=== PATIENT | male | born 1950 | race Caucasian/White ===

== ENCOUNTER → 2017-09-13 | Outpatient (CLI) | payer MEDICARE ==
[~2017-09-13] MED LIST: AMLO2.5T PO; ASPI-496 PO; ATOR20TA9 PO; CHOL500015 PO; CYAN25009 PO; HYDR25TA6 PO; MELO7.5T5 PO; OMEG-69 PO; ONDA4TAB10 PO; OXYC5CAP2 PO; POTA10TA12 PO; POTA99TA14 PO; ROSU10TA PO; S-AD400T2 PO; SULF500T36 PO; TRAM50TA2 PO; UBID1CAP43 PO; VITA400C14 PO
[2017-09-13 09:33] LABS: HEMATOCRIT 51.4 % (39.2-51.8); HEMOGLOBIN 17.3 g/dL (13.7-18.0); WHITE BLOOD COUNT 4.1 x10^3/uL (3.4-10)
[2017-09-13 09:43] LABS: ASPARTATE AMINO TRANSFERASE 21 U/L (15-37); BLOOD UREA NITROGEN 19 mg/dL (7-18)
== END | disposition home or self-care (01) ==
LOC: STAR 08:21
PROVIDERS: ATTEND Orthopaedic Surgery
DX: Z01.818 Encounter for other preprocedural examination (principal); M25.562 Pain in left knee; T84.195A Other mechanical complication of internal fixation device of left femur, initial encounter; R79.1 Abnormal coagulation profile; Z96.652 Presence of left artificial knee joint
CPT/HCPCS: 36415; 80053; 83036; 85025; 85610; 85730; 87081; 93005

== ENCOUNTER 2017-09-28 05:45 | Inpatient (IN) | payer MEDICARE ==
[~2017-09-28] VITALS: Ht 188 cm; Wt 92.0 kg
[~2017-09-28 05:45] MED LIST changes: -MELO7.5T5 PO; -ONDA4TAB10 PO; -OXYC5CAP2 PO; -TRAM50TA2 PO
[2017-09-28] MEDS ORDERED: VANCOMYCIN PER PHARMACY MC STA (06:15)
[2017-09-28] MEDS ORDERED: LACTATED RINGERS 1,000 ML IV SCH (06:22)
[2017-09-28] MEDS ORDERED: OxyconTIN ER 10 MG TAB.ER ONE (06:26)
[2017-09-28] MEDS ORDERED: OxyconTIN ER 10 MG TAB.ER PO ONE (06:30)
[2017-09-28] MEDS ORDERED: VANCOMYCIN PMX 1GM/200ML 200 ML IV ONE (06:30)
[2017-09-28 06:42] VITALS: BP 146/84
[2017-09-28] MEDS ORDERED: ROPivacaine/PF 0.2%, 10 ML ONE (07:01)
[2017-09-28] MEDS ORDERED: KETOROLAC 60 MG/2 ML ONE (07:01)
[2017-09-28] MEDS ORDERED: TRANEXAMIC ACID 100 MG/ML, 10ML ONE ×2 (07:01)
[2017-09-28] MEDS ORDERED: SODIUM CHLORIDE 0.9% 100 ML ONE (07:02)
[2017-09-28] MEDS ORDERED: VANCOMYCIN 1,000 MG ONE ×2 (07:02→08:21)
[2017-09-28] MEDS ORDERED: EPINEPHRINE 1 MG/ML, 1ML ONE (07:02)
[2017-09-28] MEDS ORDERED: MIDAZOLAM 1 MG/ML, 2ML ONE (07:11)
[2017-09-28] MEDS ORDERED: FENTANYL PF 100 MCG/2ML ONE ×2 (07:11→10:18)
[2017-09-28] MEDS ORDERED: ONDANSETRON 2MG/ML, 2ML IVPush PRN (08:30)
[2017-09-28] MEDS ORDERED: MEPERIDINE/PF 25MG/0.5ML IVPush PRN (08:30)
[2017-09-28] MEDS ORDERED: EPHEDRINE 50 MG/ML, 1ML IVPush PRN (08:30)
[2017-09-28] MEDS ORDERED: MIDAZOLAM 1 MG/ML, 2ML IV PRN (08:30)
[2017-09-28] MEDS ORDERED: HYDROcodone/APAP 7.5-325MG/15ML UDC PO PRN (08:30)
[2017-09-28] MEDS ORDERED: ACETAMINOPHEN 325 MG TABLET PO PRN (08:30)
[2017-09-28] MEDS ORDERED: HYDROmorphone 1 MG/ML, 1ML IV PRN ×2 (08:30→10:30)
[2017-09-28] MEDS ORDERED: LABETALOL 5MG/ML, 20ML IV PRN (08:30)
[2017-09-28] MEDS ORDERED: DIAZEPAM 5 MG/ML, 2ML IVPush PRN (08:30)
[2017-09-28] MEDS ORDERED: OXYcodone 5 MG/5 ML ORAL.SOL UDC PO PRN (08:30)
[2017-09-28] MEDS ORDERED: hydrALAzine 20 MG/ML, 1ML IV PRN (08:30)
[2017-09-28] MEDS ORDERED: ALBUTEROL SULFATE 2.5 MG/3 ML NPPB PRN (08:30)
[2017-09-28] MEDS ORDERED: PROMETHAZINE 25 MG/ML, 1ML IV PRN (08:30)
[2017-09-28] MEDS ORDERED: METOPROLOL 1 MG/ML, 5ML IV PRN (08:30)
[2017-09-28] MEDS ORDERED: PROPOFOL 10 MG/ML, 20ML ONE (09:17)
[2017-09-28] MEDS ORDERED: ONDANSETRON 2MG/ML, 2ML ONE (09:17)
[2017-09-28] MEDS ORDERED: CEFAZOLIN 1,000 MG ONE (09:17)
[2017-09-28] MEDS ORDERED: DEXAMETHASONE 4 MG/ML, 1ML ONE (09:17)
[2017-09-28] MEDS ORDERED: NS + 20MEQ KCL 1,000 ML IV SCH (10:03)
[2017-09-28] MEDS ORDERED: MEPERIDINE/PF 25MG/0.5ML ONE (10:17)
[2017-09-28] MEDS ORDERED: OXYcodone 5 MG/5 ML ORAL.SOL UDC ONE (10:18)
[2017-09-28] MEDS ORDERED: ACETAMINOPHEN 325 MG TABLET ONE (10:18)
[2017-09-28] MEDS ORDERED: BISACODYL 10 MG SUPP PR PRN (10:30)
[2017-09-28] MEDS ORDERED: DIPHENHYDRAMINE 50 MG CAPSULE PO PRN (10:30)
[2017-09-28] MEDS ORDERED: SCOPOLAMINE PATCH, 1.5MG PATCH.TD72 TD ONE (10:30)
[2017-09-28] MEDS ORDERED: SENNA/DOCUSATE TABLET PO PRN (10:30)
[2017-09-28] MEDS ORDERED: ACETAMINOPHEN 650 MG/20.3 ML UDC PO PRN (10:30)
[2017-09-28] MEDS ORDERED: ZOLPIDEM 5MG TABLET PO PRN (10:30)
[2017-09-28] MEDS ORDERED: HYDROcodone/APAP 5/325 TABLET PO PRN (10:30)
[2017-09-28] MEDS ORDERED: MAGNESIUM HYDROXIDE 8%, 30ML UDC PO PRN (10:30)
[2017-09-28] MEDS ORDERED: ONDANSETRON 4 MG TABLET PO PRN (10:30)
[2017-09-28] MEDS ORDERED: ONDANSETRON 2MG/ML, 2ML IV PRN (10:30)
[2017-09-28] MEDS: FENTANYL PF 100 MCG/2ML IV PRN ×2 (10:44→10:58)
[2017-09-28] MEDS ORDERED: POTASSIUM CHLORIDE 10 MEQ TABLET.ER PO SCH (12:00)
[2017-09-28 12:46] VITALS: BP 131/73
[2017-09-28] MEDS: OXYcodone IR 5MG TABLET PO PRN ×2 (15:02→21:33)
[2017-09-28] MEDS: CEFAZOLIN PMX 2GM/50ML 50 ML IVPB SCH (16:46)
[2017-09-28] MEDS: ASPIRIN 81 MG TABLET EC PO SCH (19:08)
[2017-09-28] MEDS: DOCUSATE 100 MG CAPSULE PO SCH (20:09)
[2017-09-28 20:58] VITALS: BP 121/61
[2017-09-28] MEDS ORDERED: ATORVASTATIN 20 MG TABLET PO SCH (21:00)
[2017-09-28] MEDS: SULFASALAZINE 500 MG TABLET PO SCH (21:33)
[2017-09-29 00:08] VITALS: BP 116/60
[2017-09-29] MEDS: CEFAZOLIN PMX 2GM/50ML 50 ML IVPB SCH (00:21)
[2017-09-29] MEDS ORDERED: POTASSIUM CHLORIDE 20 MEQ in SODIUM CHLORIDE 0.9% 1,000 ML IV SCH (01:00)
[2017-09-29] MEDS: OXYcodone IR 5MG TABLET PO PRN ×3 (01:30→09:03)
[2017-09-29 04:31] VITALS: BP 120/67
[2017-09-29 05:05] LABS: HEMATOCRIT 38.3 % (39.2-51.8); HEMOGLOBIN 13.1 g/dL (13.7-18.0)
[2017-09-29] MEDS ORDERED: DEXAMETHASONE 4 MG/ML, 1ML IVPush SCH (06:00)
[2017-09-29] MEDS: ASPIRIN 81 MG TABLET EC PO SCH (06:05)
[2017-09-29 07:52] VITALS: BP 149/71
[2017-09-29] MEDS: DOCUSATE 100 MG CAPSULE PO SCH (08:48)
[2017-09-29] MEDS: SULFASALAZINE 500 MG TABLET PO SCH (08:48)
[2017-09-29] MEDS ORDERED: POTASSIUM GLUCONATE 99 MG PO SCH (09:00)
[2017-09-29] MEDS ORDERED: S ADENOSYLMETHIONINE PO SCH (09:00)
[2017-09-29] MEDS ORDERED: AMLODIPINE 2.5 MG TABLET PO SCH (09:00)
[2017-09-29] MEDS ORDERED: OXYC5CAP2 PO (11:22)
[2017-09-29] MEDS ORDERED: TRAM50TA2 PO (11:23)
[2017-09-29] MEDS ORDERED: MELO7.5T5 PO (11:23)
[2017-09-29] MEDS ORDERED: ASPI-496 PO (11:25)
[2017-09-29] MEDS ORDERED: ONDA4TAB10 PO (11:25)
== END 2017-09-29 12:00 | disposition home or self-care (01) | DRG 467 ==
LOC: ORIP 05:45 → 4NOR 11:38
PROVIDERS: ADMIT Orthopaedic Surgery; ATTEND Orthopaedic Surgery
PROC: 0SRD069 Replacement of Left Knee Joint with Oxidized Zirconium on Polyethylene Synthetic Substitute, Cemented, Open Approach (ICD-10-PCS; 2017-09-28)
PROC: 0SPD0JZ Removal of Synthetic Substitute from Left Knee Joint, Open Approach (ICD-10-PCS; principal; 2017-09-28 07:45)
DX: T84.033A Mechanical loosening of internal left knee prosthetic joint, initial encounter (principal); R71.0 Precipitous drop in hematocrit; T84.053A Periprosthetic osteolysis of internal prosthetic left knee joint, initial encounter; T84.84XA Pain due to internal orthopedic prosthetic devices, implants and grafts, initial encounter; Y83.8 Other surgical procedures as the cause of abnormal reaction of the patient, or of later complication, without mention of misadventure at the time of the procedure; Y92.89 Other specified places as the place of occurrence of the external cause; M25.362 Other instability, left knee
CPT/HCPCS: 36415; 85014; 85018; 86850; 86900; 86923; 87070; 87075; 87176; 87205; C1713; J0171; J0690; J1100; J1885; J2175; J2250; J2405; J2704; J2795; J3010; J3370; J3480; C1762; C1776; J7030; J7120

== ENCOUNTER 2020-05-13 23:12 | Inpatient (IN) | payer MEDICARE ==
[~2020-05-13] VITALS: Ht 188 cm; Wt 87.4 kg
[~2020-05-13 23:12] MED LIST changes: -AMLO2.5T PO; +AMLO2.5T5 PO; +ASPI81TA45 PO; +ATOR20TA37 PO; -ATOR20TA9 PO; +ATOR40TA78 PO; +MELO7.5T5 PO; +METO25TA91 PO; +ONDA4TAB10 PO; +OXYC5CAP2 PO; -ROSU10TA PO; +ROSU10TA2 PO; +TRAM50TA2 PO
--- NOTE | 2020-05-13 23:54 | NUR ---
THIS IS A 69Y M THAT COMES IN TONIGHT FOR HEMATURIA, W/ DYSURIA. SYMPTOMS BEGAN TONIGHT AND HAVE WORSENED. PT HAS HX OF KIDNEY STONE YEARS AGO. PT CONNECTED TO MONITORING VSS NADN AT BEDSIDE.
[2020-05-14] MEDS ORDERED: SODIUM CHLORIDE FLUSH 10ML SYR IVF ONE (01:00)
[2020-05-14 01:03] LABS: BASOPHILS # (AUTO) 0.01 x10^3/uL (0-0.1); BASOPHILS % (AUTO) 0 % (0-1); EOSINOPHILS # (AUTO) 0.03 x10^3/uL (0-0.4); EOSINOPHILS % (AUTO) 0 % (1-7); LYMPHOCYTES # (AUTO) 0.63 x10^3/uL (1-3.4); LYMPHOCYTES % (AUTO) 5 % (22-44); MD NO; MEAN CORPUSCULAR HGB CONC 33.2 g/dL (33.2-36.2); MEAN PLATELET VOLUME 9.5 fL (7.4-10.4); MONOCYTES % (AUTO) 7 % (2-9); NEUTROPHILS # (AUTO) 10.57 x10^3/uL (1.8-6.8); NEUTROPHILS % (AUTO) 88 % (42-75); PLATELET COUNT 177 x10^3/uL (130-400); RED BLOOD COUNT 5.16 x10^6/uL (4.38-5.82); RED CELL DISTRIBUTION WIDTH 13.8 % (9.4-14.8)
--- NOTE | 2020-05-14 01:10 | NUR ---
URINE SENT TO LAB
--- NOTE | 2020-05-14 01:11 | NUR ---
PT TO CT AT THIS TIME
[2020-05-14 01:14] LABS: ALBUMIN 3.9 g/dL (3.4-5.0); ANION GAP 6 mmol/L (5-15); CALCIUM 8.5 mg/dL (8.5-10.1); CHLORIDE 108 mmol/L (98-107)
[2020-05-14 01:16] LABS: ALANINE AMINOTRANSFERASE 28 U/L (12-78); ALKALINE PHOSPHATASE 74 U/L (45-117); BILIRUBIN,TOTAL 0.6 mg/dL (0.2-1.0); CREATININE 1.21 mg/dL (0.7-1.3); TOTAL PROTEIN 7.3 g/dL (6.4-8.2)
[2020-05-14 01:25] LABS: MICROSCOPIC INDICATED
[2020-05-14] MEDS ORDERED: PHENAZOPYRIDINE 200 MG TABLET ONE (01:52)
[2020-05-14] MEDS ORDERED: CEFTRIAXONE PMX 1GM/50ML 50 ML ONE (01:52)
[2020-05-14] MEDS ORDERED: PHENAZOPYRIDINE 200 MG TABLET PO ONE (02:00)
[2020-05-14] MEDS ORDERED: CEFTRIAXONE PMX 1GM/50ML 50 ML IV ONE (02:00)
[2020-05-14] MEDS ORDERED: SODIUM CHLORIDE 0.9% 1,000ML IVBOLUS ONE (02:00)
--- NOTE | 2020-05-14 02:12 | NUR ---
BREAK RN: PIV PLACED, IVF RUNNING, ABX STARTED AFTER BLOOD CULTURES DRAWN X2
[2020-05-14] MEDS ORDERED: hydrALAzine 20 MG/ML, 1ML IVPush PRN (02:30)
[2020-05-14] MEDS ORDERED: morphine SULFATE 10 MG/ML, 1ML IVPush PRN (02:30)
[2020-05-14] MEDS ORDERED: METHOCARBAMOL 500 MG TABLET PO PRN (02:30)
[2020-05-14] MEDS ORDERED: ACETAMINOPHEN 325 MG TABLET PO PRN (02:30)
[2020-05-14] MEDS ORDERED: POLYETHYLENE GLYCOL 17 GM PACKET PO PRN (02:30)
[2020-05-14] MEDS ORDERED: OXYcodone IR 5MG TABLET PO PRN (02:30)
[2020-05-14] MEDS ORDERED: DOCUSATE 100 MG CAPSULE PO PRN (02:30)
[2020-05-14] MEDS ORDERED: BISACODYL 10 MG SUPP PR PRN (02:30)
[2020-05-14] MEDS ORDERED: CYCLOBENZAPRINE 10 MG TABLET PO PRN (02:30)
[2020-05-14] MEDS ORDERED: BACLOFEN 10 MG TABLET PO PRN (02:30)
[2020-05-14 02:50] LABS: FREE T4 (FREE THYROXINE) 1.17 ng/dL (0.76-1.46)
--- NOTE | 2020-05-14 02:50 | NUR ---
REPORT TO FORTUNATO DAVIES PT READY FOR TRANSPORT TO ROOM
[2020-05-14 03:23] VITALS: BP 136/69
[2020-05-14] MEDS: SODIUM CHLORIDE 0.9% 1,000 ML IV SCH ×2 (03:32→13:38)
[2020-05-14] MEDS: METOPROLOL SUCCINATE 25 MG TAB.ER.24H PO SCH (06:00)
[2020-05-14 07:47] VITALS: BP 115/57
[2020-05-14] MEDS ORDERED: HYDROCHLOROTHIAZIDE 25 MG TABLET PO SCH (09:00)
[2020-05-14] MEDS ORDERED: S ADENOSYLMETHIONINE PO SCH (09:00)
[2020-05-14] MEDS ORDERED: POTASSIUM CHLORIDE 10 MEQ TABLET.ER PO SCH (09:00)
[2020-05-14] MEDS: SULFASALAZINE 500 MG TABLET PO SCH ×2 (09:26→20:47)
[2020-05-14] MEDS: POTASSIUM GLUCONATE 99 MG HOMEMEDPO SCH (09:26)
[2020-05-14] MEDS: OMEGA-3/FISH OIL CAPSULE PO SCH (09:27)
[2020-05-14] MEDS: ASPIRIN 81 MG TABLET EC PO SCH (09:27)
[2020-05-14] MEDS: AMLODIPINE 2.5 MG TABLET PO SCH (09:28)
[2020-05-14] MEDS: VITAMIN E 400 UNITS CAPSULE PO SCH (09:28)
[2020-05-14] MEDS: PHENAZOPYRIDINE 200 MG TABLET PO SCH ×3 (09:28→20:46)
[2020-05-14] MEDS: CHOLECALCIFEROL 5,000u TAB PO SCH (09:28)
[2020-05-14] MEDS: CYANOCOBALAMIN 1,000 MCG TABLET PO SCH (09:29)
[2020-05-14] MEDS: CEFTRIAXONE PMX 2GM/50ML 50 ML IV SCH (13:38)
[2020-05-14 14:30] VITALS: BP 135/67
[2020-05-14 19:47] VITALS: BP 148/69
[2020-05-14] MEDS ORDERED: ATORVASTATIN 40 MG TABLET PO SCH (21:00)
[2020-05-15 00:33] VITALS: BP 117/55
[2020-05-15] MEDS: METOPROLOL SUCCINATE 25 MG TAB.ER.24H PO SCH (05:44)
[2020-05-15 06:04] LABS: BASOPHILS # (AUTO) 0.03 x10^3/uL (0-0.1); BASOPHILS % (AUTO) 0 % (0-1); EOSINOPHILS # (AUTO) 0.04 x10^3/uL (0-0.4); EOSINOPHILS % (AUTO) 0 % (1-7); LYMPHOCYTES # (AUTO) 1.71 x10^3/uL (1-3.4); LYMPHOCYTES % (AUTO) 15 % (22-44); MD NO; MEAN CORPUSCULAR HEMOGLOBIN 29.9 pg (27.5-34.5); MEAN CORPUSCULAR HGB CONC 32.6 g/dL (33.2-36.2); MEAN PLATELET VOLUME 9.9 fL (7.4-10.4); MONOCYTES # (AUTO) 1.33 x10^3/uL (0.2-0.8); MONOCYTES % (AUTO) 12 % (2-9); NEUTROPHILS # (AUTO) 8.33 x10^3/uL (1.8-6.8); NEUTROPHILS % (AUTO) 73 % (42-75); PLATELET COUNT 151 x10^3/uL (130-400); RED BLOOD COUNT 4.74 x10^6/uL (4.38-5.82); RED CELL DISTRIBUTION WIDTH 13.9 % (9.4-14.8)
[2020-05-15 06:11] LABS: ALANINE AMINOTRANSFERASE 17 U/L (12-78); ALBUMIN 3.1 g/dL (3.4-5.0); ANION GAP 8 mmol/L (5-15); CALCIUM 8.2 mg/dL (8.5-10.1); CHLORIDE 107 mmol/L (98-107); CHOLESTEROL, TOTAL 130 mg/dL (140-239); CREATININE 1.05 mg/dL (0.7-1.3)
[2020-05-15 06:13] LABS: ALKALINE PHOSPHATASE 60 U/L (45-117); BILIRUBIN,TOTAL 1.2 mg/dL (0.2-1.0); CHOL/HDL RATIO 2.9; HDL CHOL % 35 % (26-37); HDL CHOLESTEROL (DIRECT) 45 mg/dL (40-60); LDL CHOLESTEROL,CALCULATED 69 mg/dL (54-169); LDL/HDL RATIO 1.5 (0.5-3.0); TOTAL PROTEIN 6.5 g/dL (6.4-8.2); TRIGLYCERIDES 82 mg/dL (50-200); VLDL CHOLESTEROL 16 mg/dL (0-25)
[2020-05-15 08:04] VITALS: BP 110/66
[2020-05-15] MEDS: POTASSIUM GLUCONATE 99 MG HOMEMEDPO SCH (08:10)
[2020-05-15] MEDS: AMLODIPINE 2.5 MG TABLET PO SCH (08:10)
[2020-05-15] MEDS: OMEGA-3/FISH OIL CAPSULE PO SCH (08:10)
[2020-05-15] MEDS: VITAMIN E 400 UNITS CAPSULE PO SCH (08:10)
[2020-05-15] MEDS: ASPIRIN 81 MG TABLET EC PO SCH (08:10)
[2020-05-15] MEDS: PHENAZOPYRIDINE 200 MG TABLET PO SCH (08:10)
[2020-05-15] MEDS: SULFASALAZINE 500 MG TABLET PO SCH (08:10)
[2020-05-15] MEDS: CHOLECALCIFEROL 5,000u TAB PO SCH (08:10)
[2020-05-15] MEDS: CYANOCOBALAMIN 1,000 MCG TABLET PO SCH (08:11)
[2020-05-15] MEDS ORDERED: CEFD300C37 PO (12:12)
[2020-05-15] MEDS: CEFTRIAXONE PMX 2GM/50ML 50 ML IV SCH (13:01)
[2020-05-15 13:39] VITALS: BP 146/62
== END 2020-05-15 14:49 | disposition home or self-care (01) | DRG 690 ==
LOC: ED 05-14 02:28 → EDIP 05-14 02:34 → 3N 05-14 03:08 → DCLOUNGE 05-15 14:40
PROVIDERS: ADMIT Internal Medicine; ATTEND Internal Medicine
DX: N10 Acute pyelonephritis (principal); I10 Essential (primary) hypertension; I25.10 Atherosclerotic heart disease of native coronary artery without angina pectoris; E78.5 Hyperlipidemia, unspecified; I25.2 Old myocardial infarction; N28.1 Cyst of kidney, acquired; Z82.49 Family history of ischemic heart disease and other diseases of the circulatory system; Z87.442 Personal history of urinary calculi; Z96.652 Presence of left artificial knee joint; R31.29 Other microscopic hematuria; R30.0 Dysuria
CPT/HCPCS: 36415; 74176; 80053; 80061; 81001; 83735; 84439; 84443; 85025; 87040; 87077; 87086; 87186; 99285; G0378; J0696; J7030

== ENCOUNTER 2020-08-16 20:12 | Emergency (ER) | payer MEDICARE ==
[~2020-08-16] VITALS: Ht 188 cm; Wt 86.0 kg
[~2020-08-16 20:12] MED LIST changes: +CEFD300C37 PO
[2020-08-16] MEDS ORDERED: LABETALOL 20 MG/4 ML ONE (20:28)
[2020-08-16] MEDS ORDERED: ADENOSINE 6 MG/2 ML ONE (20:28)
[2020-08-16] MEDS ORDERED: DILTIAZEM 5 MG/ML, 5ML ONE (20:38)
[2020-08-16] MEDS ORDERED: SULF500T47 PO (20:46)
[2020-08-16] MEDS ORDERED: ASPIRIN 81 MG TABLET CHEW ONE (20:51)
[2020-08-16 20:59] LABS: BASOPHILS % (AUTO) 0 % (0-1); EOSINOPHILS % (AUTO) 3 % (1-7); LYMPHOCYTES % (AUTO) 35 % (22-44); MEAN CORPUSCULAR HEMOGLOBIN 29.3 pg (27.5-34.5); MEAN CORPUSCULAR HGB CONC 33.2 g/dL (33.2-36.2); MONOCYTES % (AUTO) 14 % (2-9); NEUTROPHILS % (AUTO) 48 % (42-75); PLATELET COUNT 190 x10^3/uL (130-400); RED BLOOD COUNT 5.18 x10^6/uL (4.38-5.82)
[2020-08-16] MEDS ORDERED: ASPIRIN 81 MG TABLET CHEW PO ONE (21:00)
[2020-08-16] MEDS ORDERED: DILTIAZEM 5 MG/ML, 5ML IV ONE (21:00)
--- NOTE | 2020-08-16 21:00 | NUR ---
LATE ENTRY: PT PRESENTED FROM HOME AFTER WATCHING A SHOW, STATED HR IS HIGH. SEE VS, IV STARTED, MEDICATED, PT FELT DIZZY AFTER, CALL DONT FALL EDUCATED. REPORT TO ESTER DAVIES.
[2020-08-16 21:06] LABS: MD NO
[2020-08-16 21:09] LABS: ALANINE AMINOTRANSFERASE 45 U/L (12-78); ALBUMIN 3.7 g/dL (3.4-5.0); ANION GAP 8 mmol/L (5-15); CALCIUM 8.7 mg/dL (8.5-10.1); CHLORIDE 109 mmol/L (98-107); CREATININE 1.12 mg/dL (0.7-1.3)
[2020-08-16 21:13] LABS: ALKALINE PHOSPHATASE 70 U/L (45-117); BILIRUBIN,TOTAL 0.5 mg/dL (0.2-1.0); TOTAL PROTEIN 7.1 g/dL (6.4-8.2); TROPONIN I 0.018 ng/mL (0.000-0.045)
[2020-08-16] MEDS ORDERED: PROPOFOL 10 MG/ML, 20ML IV ONE (22:00)
--- NOTE | 2020-08-16 22:20 | NUR ---
RECEIVED BS REPORT FORM SAMSON NORMAN. DR. ALMEIDA IN TO DISCUSS PLAN FOR D/C WITH PT. AND FAMILY AT .
[2020-08-16 22:31] VITALS: BP 131/69
== END 2020-08-16 22:34 | disposition home or self-care (01) ==
LOC: ED 21:22
DX: I48.0 Paroxysmal atrial fibrillation (principal); R00.0 Tachycardia, unspecified; R07.9 Chest pain, unspecified; I10 Essential (primary) hypertension; I25.2 Old myocardial infarction; Z90.49 Acquired absence of other specified parts of digestive tract
CPT/HCPCS: 36415; 71045; 80053; 84484; 85025; 93005; 96374; 99285

== ENCOUNTER → 2020-09-14 | Outpatient (CLI) | payer MEDICARE ==
[~2020-09-14] MED LIST changes: +SULF500T47 PO
== END | disposition home or self-care (01) ==
LOC: CVU 11:02
PROVIDERS: ATTEND Internal Medicine Cardiovascular Disease
DX: I08.0 Rheumatic disorders of both mitral and aortic valves (principal); I10 Essential (primary) hypertension
CPT/HCPCS: 93306

== ENCOUNTER 2020-12-31 15:08 | Emergency (ER) | payer MEDICARE ==
[~2020-12-31] VITALS: Ht 188 cm; Wt 88.9 kg
--- NOTE | 2020-12-31 15:34 | NUR ---
PT BIB VIA POV. PER PT AT APPROX 1415 HE WAS STANDING UP FROM CHAIR AND HAD A SYNCOPAL EVENT. PER PT HE HIT HIS HEAD ON THE FLOOR AND THEN DEVELOPED CP. PT TOOK NITRO X1 [employer] SOFTWARE, STATES PAIN IMPROVED FROM 04/07 TO 02/05. HX OF X2 PA. PT STATES PAIN FEELS SIMILAR TO PAST PA IN 08/2020. EKG DONE IN TRIAGE. PT RESTING IN [facility], MONITORING IN PLACE, NADN AT THIS TIME, PER PT NO NEEDS AT THIS TIME, WCTM.
[2020-12-31 16:29] LABS: BASOPHILS % (AUTO) 0 % (0-1); EOSINOPHILS % (AUTO) 1 % (1-7); LYMPHOCYTES % (AUTO) 13 % (22-44); MEAN CORPUSCULAR HEMOGLOBIN 30.2 pg (27.5-34.5); MEAN CORPUSCULAR HGB CONC 34.4 g/dL (33.2-36.2); MEAN PLATELET VOLUME 9.5 fL (7.4-10.4); MONOCYTES % (AUTO) 11 % (2-9); NEUTROPHILS % (AUTO) 75 % (42-75); PLATELET COUNT 204 x10^3/uL (130-400); RED BLOOD COUNT 5.08 x10^6/uL (4.38-5.82); RED CELL DISTRIBUTION WIDTH 13.6 % (9.4-14.8)
[2020-12-31 16:31] LABS: MD NO
[2020-12-31 16:36] LABS: ALBUMIN 3.7 g/dL (3.4-5.0); ANION GAP 6 mmol/L (5-15); CALCIUM 8.7 mg/dL (8.5-10.1); CHLORIDE 108 mmol/L (98-107); CREATININE 1.16 mg/dL (0.7-1.3)
[2020-12-31 16:40] LABS: TROPONIN I 0.028 ng/mL (0.000-0.045)
[2020-12-31] MEDS ORDERED: HYDROcodone/APAP 5/325 TABLET PO ONE (18:00)
[2020-12-31] MEDS ORDERED: HYDROcodone/APAP 5/325 TABLET ONE (18:17)
[2020-12-31 18:29] VITALS: BP 129/78
--- NOTE | 2020-12-31 18:56 | NUR ---
REPORT GIVEN TO SAMSON NORMAN.
== END 2020-12-31 19:27 | disposition home or self-care (01) ==
LOC: ED 15:54
DX: S00.01XA Abrasion of scalp, initial encounter (principal); S29.9XXA Unspecified injury of thorax, initial encounter; S09.90XA Unspecified injury of head, initial encounter; G89.11 Acute pain due to trauma; M54.6 Pain in thoracic spine; R55 Syncope and collapse; R42 Dizziness and giddiness; I10 Essential (primary) hypertension; I49.3 Ventricular premature depolarization; R07.89 Other chest pain; X58.XXXA Exposure to other specified factors, initial encounter; Y93.89 Activity, other specified; Y92.89 Other specified places as the place of occurrence of the external cause; Y99.8 Other external cause status
CPT/HCPCS: 36415; 70450; 71045; 72072; 72125; 80048; 82040; 84484; 85025; 93005; 99285

== ENCOUNTER → 2021-05-13 | Outpatient (CLI) | payer MEDICARE ==
[~2021-05-13] MED LIST changes: -POTA99TA14 PO; +POTA99TA19 PO; -S-AD400T2 PO; +S-AD400T6 PO
== END | disposition home or self-care (01) ==
LOC: STAR 10:29
PROVIDERS: ATTEND Internal Medicine Clinical Cardiac Electrophysiology
DX: Z20.822 Contact with and (suspected) exposure to COVID-19 (principal)
CPT/HCPCS: U0003; U0005